=== PATIENT | female | born 1995 | race Caucasian/White ===

== ENCOUNTER 2016-04-25 22:21 | Emergency (ER) | payer OTHER ==
[~2016-04-25] VITALS: Ht 160 cm; Wt 104.3 kg
[2016-04-25] MEDS ORDERED: DILTIAZEM 25 MG/5 ML INJ (CARDIZEM) VIAL ONE (22:24)
--- OUTSIDE RECORDS SUMMARY | 2016-04-25 22:27 | XMS REPORT | Continuity of Care Document ---
Author Author Interface Organization Interface Address Unknown Phone Unavailable Problems Problem Status Onset Date Classification Date Reported Comments Source Other psychoactive substance abuse, uncomplicated Active [facility] Disappearance and of family member Active To[facility]ito Pineda Unspecified mood [affective] disorder Active Toñito Pineda Medications Medication Details Route Status Patient Instructions Ordering Provider Order Date Source Allergies, Adverse Reactions, Alerts Substance Category Reaction Severity Reaction type Status Date Reported Comments Source Immunizations Immunization Date Given Site Status Last Updated Comments Source Results Order Name Results Value Reference Range Date Interpretation Comments Source Vital Signs Vital Sign Value Date Comments Source Encounters Location Location Details Encounter Type Encounter Number Reason For Visit Attending Provider ADM Date DC Date Status Source Procedures Procedure Code Date Perfomer Comments Source Psychotherapy 45 Min [id number] Toñito Pineda
[2016-04-25 22:41] LABS: BASOPHILS % (AUTO) 0 % (0-10); EOSINOPHILS % (AUTO) 0 % (0-10); LYMPHOCYTES # (AUTO) 3.2 X 10^3 (1.0-4.0); LYMPHOCYTES % (AUTO) 30 % (12-44); MEAN CORPUSCULAR HEMOGLOBIN 30 PG (25-34); MEAN CORPUSCULAR HGB CONC 35 G/DL (32-36); MEAN CORPUSCULAR VOLUME 85 FL (80-99); MONOCYTES # (AUTO) 0.7 X 10^3 (0.0-1.0); MONOCYTES % (AUTO) 7 % (0-12); NEUTROPHILS # (AUTO) 6.7 X 10^3 (1.8-7.8); NEUTROPHILS % (AUTO) 63 % (42-75); PLATELET COUNT 300 10^3/uL (130-400); RED BLOOD COUNT 4.93 10^6/uL (4.35-5.85); RED CELL DISTRIBUTION WIDTH 12.8 % (10.0-14.5); WHITE BLOOD COUNT 10.7 10^3/uL (4.3-11.0)
[2016-04-25 22:50] LABS: INR 0.9 (0.8-1.4); PROTHROMBIN TIME PATIENT 11.9 SEC (12.2-14.7)
[2016-04-25] MEDS ORDERED: PROP10TA8 PO (22:53)
--- NOTE | 2016-04-25 22:57 | ED Cardiac General ---
History of Present Illness General Chief Complaint: Chest Pain Stated Complaint: CHEST PAIN Source: patient History of Present Illness Time seen by provider: 22:22 Initial Comments PT ARRIVES VIA POV FROM HOME-[facility] SELF HERE PT STATES SHE HAS HAD PROBLEMS WITH SVT FOR 5 YEARS, BUT HAS BEEN WORSE THE LAST 5 DAYS, AND ALMOST CONSTANT FOR THE LAST DAY HAS HAD CHEST PAIN SINCE YESTERDAY C/O SHORTNESS OF BREATH NO SWELLING IN LEGS / FEET OR PAIN IN CALVES HAS PROPRANOLOL THAT SHE TAKES PRN, AND TOOK ONE YESTERDAY AND DIDN'T THINK IT HELPED MUCH. HAS NOT TAKEN IT TODAY OR AT ANY OTHER TIME OVER THE LAST 5 DAYS PT DENIES BEING UNDER STRESS OR FEELING ANXIOUS, YET PT IS EXTREMELY ANXIOUS, CRYING AND HYPERVENTILATING ON ARRIVAL. LMP--1 WEEK AGO, ENDED ON Friday04/19/16. ON OCP'S PCP: DR. GARCIA IN [facility] [employer] [facility] AT [facility] ONE TIME, SEVERAL YEARS AGO. 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 THEN Allergies and Home Medications Allergies Coded Allergies: ibuprofen (Verified Allergy, Unknown, GI IRRITATION, 04/25/16) Home Medications Propranolol HCl 10 Mg Tablet 10 MG PO PRN PRN PRN SUPRAVENTRICULAR TACHYCARDIA ( Reported) Review of Systems Constitutional: dizziness EENTM: No Symptoms Reported Respiratory: See HPI Shortness of Air Cardiovascular: See HPI Chest Pain Irregular Heart Rate Lightheadedness Palpitations Gastrointestinal: No Symptoms Reported Genitourinary: No Symptoms Reported Musculoskeletal: no symptoms reported Skin: no symptoms reported Psychiatric/Neurological: See HPI Endocrine: No Symptoms Reported Hematologic/Lymphatic: No Symptoms Reported Past Lixdzje-Hqiade-Blhnhv Hx Patient Social History Alcohol Use: Occasionally Uses Recreational Drug Use: No Smoking Status: Never a Smoker Recent Foreign Travel: No Contact w/Someone Who Travel: No Recent Hopitalizations: No Physical Abuse Screen: No Sexual Abuse: No Seasonal Allergies Seasonal Allergies: No Surgeries HX Surgeries: No Respiratory Hx Respiratory Disorders: No Cardiovascular Hx Cardiac Disorders: Yes (SVT) Cardiac Disorders: Irregular Heartbeat Neurological Hx Neurological Disorders: No Reproductive System : No Hx Reproductive Disorders: No Genitourinary Hx Genitourinary Disorders: No Gastrointestinal Hx Gastrointestinal Disorders: No Musculoskeletal Hx Musculoskeletal Disorders: No Endocrine Hx Endocrine Disorders: Yes (OBESITY) HEENT HX ENT Disorders: No Psychosocial Hx Psychiatric Problems: Yes Behavioral Health Disorders: Anxiety Integumentary HX Skin/Integumentary Disorder: No Blood Transfusions Hx Blood Disorders: No Physical Exam Vital Signs Vital Sign - Last 12Hours 04/25/16 22:42 Temp 96.6 Pulse 158 Resp 26 B/P 168/112 Pulse Ox 99 O2 Delivery Room Air Capillary Refill : General Appearance: Obese Other (EXTREMELY ANXIOUS, CRYING, HYPERVENTILATING, VERY DRAMATIC. DOES NOT MAKE EYE CONTACT) HEENT: PERRL/EOMI Neck: Full Range of Motion Normal Inspection Non Tender SuppleNo Carotid Bruit , No JVD Respiratory: Chest Non Tender Normal Breath Sounds No Accessory Muscle Use No Respiratory Distress Other (HYPERVENTILATING) Cardiovascular: No Edema No JVD No Murmur Normal Peripheral Pulses Tachycardia Gastrointestinal: Normal Bowel Sounds No Organomegaly Non Tender Soft Extremity: Normal Capillary Refill Normal Inspection Normal Range of Motion Non Tender No Calf Tenderness No Pedal Edema Neurologic/Psychiatric: Alert Oriented x3 No Motor/Sensory Deficits trimmer climber II- XII Norm as Tested Skin: Normal Color Warm/Dry Tattoos/Piercings (PIERCINGS) Progress/Results/Core Measures Results/Orders Lab Results Laboratory Tests Test 04/25/16 22:30 04/25/16 23:35 Range/Units Activated Partial Thromboplast Time 25 24-35 SEC Alanine Aminotransferase (ALT/SGPT) 17 0-55 U/L Albumin 4.3 3.2-4.5 G/DL Alkaline Phosphatase 95 40-136 U/L Amylase Level 43 25-125 U/L Anion Gap 13 5-14 MMOL/L Aspartate Amino Transf (AST/SGOT) 14 5-34 U/L B-Type Natriuretic Peptide < 10.0 <100.0 PG/ML BUN/Creatinine Ratio 10 Basophils # (Auto) 0.0 0.0-0.1 10^3/uL Basophils (%) (Auto) 0 0-10 % Blood Urea Nitrogen 9 7-18 MG/DL Calcium Level 9.6 8.5-10.1 MG/DL Carbon Dioxide Level 19 L 21-32 MMOL/L Chloride Level 108 H 98-107 MMOL/L Creatine Kinase MB 1.0 <6.6 NG/ML Creatinine 0.87 0.60-1.30 MG/DL Eosinophils # (Auto) 0.0 0.0-0.3 10^3/uL Eosinophils (%) (Auto) 0 0-10 % Estimat Glomerular Filtration Rate > 60 Glucose Level 101 70-105 MG/DL Hematocrit 42 35-52 % Hemoglobin 14.6 11.5-16.0 G/DL INR Comment 0.9 0.8-1.4 Lipase 34 8-78 U/L Lymphocytes # (Auto) 3.2 1.0-4.0 X 10^3 Lymphocytes (%) (Auto) 30 12-44 % Magnesium Level 2.2 1.8-2.4 MG/DL Mean Corpuscular Hemoglobin 30 25-34 PG Mean Corpuscular Hemoglobin Concent 35 32-36 G/DL Mean Corpuscular Volume 85 80-99 FL Mean Platelet Volume 11.0 H 7.4-10.4 FL Monocytes # (Auto) 0.7 0.0-1.0 X 10^3 Monocytes (%) (Auto) 7 0-12 % Neutrophils # (Auto) 6.7 1.8-7.8 X 10^3 Neutrophils (%) (Auto) 63 42-75 % Platelet Count 300 130-400 10^3/uL Potassium Level 3.7 3.6-5.0 MMOL/L Prothrombin Time 11.9 L 12.2-14.7 SEC Red Blood Count 4.93 4.35-5.85 10^6/uL Red Cell Distribution Width 12.8 10.0-14.5 % Serum Test, Qualitative NEGATIVE NEGATIVE Sodium Level 140 135-145 MMOL/L TSH [facility] 3.46 0.35-4.94 UIU/ML Total Bilirubin 0.3 0.1-1.0 MG/DL Total Creatine Kinase 67 29-168 U/L Total Protein 7.5 6.4-8.2 G/DL Troponin I < 0.30 <0.30 NG/ML White Blood Count 10.7 4.3-11.0 10^3/uL Ur Tricyclic Antidepressants Screen NEGATIVE NEGATIVE Urine Amphetamines Screen NEGATIVE NEGATIVE Urine Barbiturates Screen NEGATIVE NEGATIVE Urine Benzodiazepines Screen NEGATIVE NEGATIVE Urine Cannabinoids Screen NEGATIVE NEGATIVE Urine Cocaine Screen NEGATIVE NEGATIVE Urine Methadone Screen NEGATIVE NEGATIVE Urine Methamphetamines Screen NEGATIVE NEGATIVE Urine Opiates Screen NEGATIVE NEGATIVE Urine Oxycodone Screen NEGATIVE NEGATIVE Urine Phencyclidine Screen NEGATIVE NEGATIVE Urine Propoxyphene Screen NEGATIVE NEGATIVE My Orders Orders-MELIA SZYMANSKI DO Diltiazem Injection (Cardizem Injection) (04/25/16 22:24) Amylase (1/12/17 22:32) Cbc With Automated Diff (04/25/16 22:32) Comprehensive Metabolic Panel (04/25/16 22:32) Creatine Kinase (04/25/16 22:32) Creatine Kinase Mb (04/25/16 22:32) Lipase (04/25/16 22:32) Partial Thromboplastin Time (04/25/16 22:32) Protime With Inr (04/25/16 22:32) Troponin I (04/25/16 22:32) Chest 1 View, Ap/Pa Only (04/25/16 22:32) O2 (04/25/16 22:32) Ekg Tracing (04/25/16 22:32) BNP (04/25/16 22:32) Monitor-Rhythm Ecg Trace Only (04/25/16 22:32) Drug Screen Stat (Urine) (04/25/16 22:32) Hcg,Qualitative Serum (04/25/16 22:32) Magnesium (04/25/16 22:32) Thyroid Analyzer (04/25/16 22:32) Aspirin Chewable Tablet (Baby Aspirin Ch (04/25/16 23:00) Metoprolol Succinate (Xl) Tab (Toprol Xl (04/25/16 23:00) Medications Given in ED Current Medications Medications Dose Ordered Sig/Alicia Route Start Time Stop Time Status Last Admin Dose Admin Aspirin 324 mg ONCE ONCE PO 04/25/16 23:00 04/25/16 23:01 DC 04/25/16 22:59 324 MG Diltiazem HCl 25 mg STK-MED ONCE .ROUTE 04/25/16 22:24 04/25/16 22:31 DC 04/25/16 22:32 25 MG Vital Signs/I&O Vital Sign - Last 12Hours 04/25/16 04/25/16 22:42 22:50 Temp 96.6 Pulse 158 Resp 26 B/P 168/112 Pulse Ox 99 O2 Delivery Room Air Room Air Progress Note : Progress Note RATE SLOWED, BP DOWN AND SYMPTOMS RESOLVED ON OWN WITHOUT TREATMENT--ALL WITH CALMING OF PT, A FEW MINUTES AFTER ARRIVAL. CARDIZEM GIVEN WELL. ECG Initial ECG Impression Time: 22:30 Initial ECG Rate: 145 Initial ECG Rhythm: S.Tach Initial ECG Comparisson: No Previous ECG Available EKG : EKG Time: 22:38 Rate: 66 Rhythm: Normal Sinus Comment EKG #3 AT 2242, RATE 84, NSR Diagnostic Imaging Comments CXR--NO ACUTE PROCESS, PENDING RADIOLOGIST REVIEW Reviewed: Reviewed by Me Departure Impression Impression: Primary Impression: INTERMITTENT SINUS TACHYCARDIA Additional Impression: ANXIETY WITH HYPERVENTILATION Disposition: 01 HOME, SELF-CARE Condition: Improved Departure-Patient Inst. Referrals: THONY GARCIA MD Patient Instructions: Anxiety, Adult (DC), Heart Healthy Diet, Hyperventilation , Sinus Tachycardia (DC) Add. Discharge Instructions: HOME, REST TAKE PROPRANOLOL DAILY AVOID CAFFEINE, DECONGESTANTS, AND ANY OTHER STIMULANTS FOLLOW UP WITH DR. GARCIA THIS WEEK FOR FURTHER CARE All discharge instructions reviewed with patient and/or family. Voiced understanding. MELIA SZYMANSKI DO Apr 25, 2016 22:57
[2016-04-25] MEDS ORDERED: ASPIRIN 81 MG CHEW (CHILDREN'S ASA) PO ONE (23:00)
[2016-04-25] MEDS ORDERED: meTOproloL SUCCINATE 50 MG (TOPROL XL) TAB PO SCH (23:00)
[2016-04-25 23:01] LABS: ALANINE AMINOTRANSFERASE 17 U/L (0-55); ALBUMIN 4.3 G/DL (3.2-4.5); AMYLASE 43 U/L (25-125); ANION GAP 13 MMOL/L (5-14); ASPARTATE AMINO TRANSFERASE 14 U/L (5-34); BILIRUBIN,TOTAL 0.3 MG/DL (0.1-1.0); BLOOD UREA NITROGEN 9 MG/DL (7-18); BUN/CREATININE RATIO 10; CALCIUM 9.6 MG/DL (8.5-10.1); CARBON DIOXIDE 19 MMOL/L (21-32); CHLORIDE 108 MMOL/L (98-107); CREATINE KINASE 67 U/L (29-168); CREATININE SERUM 0.87 MG/DL (0.60-1.30); GFR ESTIMATED > 60; GLUCOSE 101 MG/DL (70-105); LIPASE 34 U/L (8-78); MAGNESIUM 2.2 MG/DL (1.8-2.4); POTASSIUM 3.7 MMOL/L (3.6-5.0); SODIUM 140 MMOL/L (135-145); TOTAL PROTEIN 7.5 G/DL (6.4-8.2)
[2016-04-25 23:20] LABS: TROPONIN I < 0.30 NG/ML (<0.30)
[2016-04-26 00:36] VITALS: BP 128/77
--- NOTE | 2016-04-26 07:40 | Diagnostic Imaging Report ---
Portable upright radiograph of the chest. INDICATION: Chest pain. FINDINGS: The lungs are clear. The heart size is normal. No effusion or pneumothorax. The mediastinum and dillan appear unremarkable. IMPRESSION: Unremarkable exam. Dictated by: Dictated on workstation # [id number]
== END 2016-04-26 00:35 | disposition home or self-care (01) ==
LOC: ER 22:24
DX: R00.0 Tachycardia, unspecified (principal); F41.9 Anxiety disorder, unspecified; R06.4 Hyperventilation
CPT/HCPCS: 36415; 71010; 80053; 80306; 82150; 82550; 82553; 83690; 83735; 83880; 84443; 84484; 84703; 85025; 85610; 85730; 93005; 93041; 96374

== ENCOUNTER 2018-02-25 09:34 | Emergency (ER) | payer OTHER ==
[~2018-02-25] VITALS: Ht 162.6 cm; Wt 81.6 kg
[~2018-02-25 09:34] MED LIST: PROP10TA8 PO
--- NOTE | 2018-02-25 11:11 | ED Abdominal Pain ---
General Chief Complaint: Abdominal/GI Problems Stated Complaint: ABD PAIN Nursing Triage Note: pt ambulates to room 9 without difficulty. pt reports r upper abdominal pain x 11 days after eating suspected bad food at a restaurant. reports one episode of n/v following that evening. pt reports has had addominal pain and constipation since. pt reports no bm x 7 days. pt states she was seen at urgent care on friday and prescribed antibiotics for a UTI. Sepsis Screen: No Definite Risk Source of Information: Patient Exam Limitations: No Limitations History of Present Illness Date Seen by Provider: Feb 25, 2018 Time Seen by Provider: 11:00 Initial Comments Patient is a 23-year-old female who presents to the emergency room by private vehicle with complaints of constipation with no bowel movement for 7 days and right upper quadrant abdominal pain. She reports that this started 11 days ago when she was eating at a Turkish restaurant when she was served raw meat, the night of eating a raw meat she had nausea, vomiting, diarrhea for approximately 12 hours and took Imodium for the diarrhea and has had abdominal pain ever since. She was seen at urgent care 3 days ago and had x-rays and was given a laxative and antibiotics for urinary tract infection but has continued to have a bowel movement with the laxatives. Denies using any enemas for constipation relief. Timing/Duration: Other (11 days) Severity/Quality: Aching, Dull Location: RUQ Radiation: No Radiation Associated Symptoms: Nausea/Vomiting, Other (constipation) Allergies and Home Medications Allergies Coded Allergies: ibuprofen (Verified Allergy, Unknown, GI IRRITATION, 04/25/16) Home Medications Propranolol HCl 10 Mg Tablet, 10 MG PO PRN PRN for SUPRAVENTRICULAR TACHYCARDIA, (Reported) Patient Home Medication List Home Medication List Reviewed: Yes Review of Systems Review of Systems Constitutional: no symptoms reported, see HPI Gastrointestinal: Abdominal Pain, Constipated, Nausea All Other Systems Reviewed Negative Unless Noted: Yes Past Lxpraxm-Aoxtek-Hfbrbi Hx Past Med/Social Hx: Reviewed Nursing Past Med/Soc Hx Patient Social History Alcohol Use: Denies Use Recreational Drug Use: No Smoking Status: Never a Smoker Recent Foreign Travel: No Contact w/Someone Who Travel: No Recent Infectious Disease Expo: No Recent Hopitalizations: No Physical Abuse: No Sexual Abuse: No Mistreated: No Fear: No Seasonal Allergies Seasonal Allergies: No Past Medical History Surgeries: No Respiratory: No Cardiac: Yes (SVT) Hypertension, Irregular Heartbeat Neurological: No Reproductive Disorders: No Genitourinary: No Gastrointestinal: No Musculoskeletal: No Endocrine: Yes (OBESITY) HEENT: No Cancer: No Psychosocial: Yes Anxiety Integumentary: No Blood Disorders: No Family Medical History Reviewed Nursing Family Hx Physical Exam Vital Signs Vital Signs - First Documented 02/25/18 10:34 Temp 98.0 Pulse 104 Resp 20 B/P (MAP) 144/85 (104) Pulse Ox 98 O2 Delivery Room Air Capillary Refill : Less Than 3 Seconds Height/Weight/BMI Height: 5'4.00" Weight: 180lbs. oz. 81.962995kz; BMI Method:Stated General Appearance: WD/WN, no apparent distress Respiratory: chest non-tender, lungs clear, normal breath sounds, no respiratory distress, no accessory muscle use Cardiovascular: normal peripheral pulses, regular rate, rhythm, no edema, no gallop, no JVD, no murmur Gastrointestinal: normal bowel sounds, soft, no organomegaly, no pulsatile mass ; No distended, No guarding, No rebound; tenderness (marked tenderness to the left upper and right upper quadrant.) Neurologic/Psychiatric: alert, normal mood/affect, oriented x 3 Skin: normal color, warm/dry Progress/Results/Core Measures Results/Orders Lab Results Laboratory Tests Test 02/25/18 10:57 02/25/18 11:40 Range/Units Urine Color BETTIE H Urine Clarity CLEAR Urine pH 5 5-9 Urine Specific [place] 1.020 1.016-1.022 Urine Protein 1+ H NEGATIVE Urine Glucose (UA) NEGATIVE NEGATIVE Urine Ketones 3+ H NEGATIVE Urine Nitrite NEGATIVE NEGATIVE Urine Bilirubin NEGATIVE NEGATIVE Urine Urobilinogen NORMAL NORMAL MG/DL Urine Leukocyte Esterase 1+ H NEGATIVE Urine RBC (Auto) NEGATIVE NEGATIVE Urine RBC RARE /HPF Urine WBC 2-5 /HPF Urine Squamous Epithelial Cells 2-5 /HPF Urine Renal Epithelial Cells NONE /HPF Urine Crystals NONE /LPF Urine Bacteria FEW H /HPF Urine Casts NONE /LPF Urine Mucus MODERATE H /LPF Urine Culture Indicated NO White Blood Count 8.5 4.3-11.0 10^3/uL Red Blood Count 4.87 4.35-5.85 10^6/uL Hemoglobin 14.5 11.5-16.0 G/DL Hematocrit 43 35-52 % Mean Corpuscular Volume 88 80-99 FL Mean Corpuscular Hemoglobin 30 25-34 PG Mean Corpuscular Hemoglobin Concent 34 32-36 G/DL Red Cell Distribution Width 12.7 10.0-14.5 % Platelet Count 283 130-400 10^3/uL Mean Platelet Volume 11.4 H 7.4-10.4 FL Neutrophils (%) (Auto) 72 42-75 % Lymphocytes (%) (Auto) 22 12-44 % Monocytes (%) (Auto) 6 0-12 % Eosinophils (%) (Auto) 0 0-10 % Basophils (%) (Auto) 0 0-10 % Neutrophils # (Auto) 6.1 1.8-7.8 X 10^3 Lymphocytes # (Auto) 1.8 1.0-4.0 X 10^3 Monocytes # (Auto) 0.5 0.0-1.0 X 10^3 Eosinophils # (Auto) 0.0 0.0-0.3 10^3/uL Basophils # (Auto) 0.0 0.0-0.1 10^3/uL Sodium Level 138 135-145 MMOL/L Potassium Level 4.2 3.6-5.0 MMOL/L Chloride Level 106 98-107 MMOL/L Carbon Dioxide Level 24 21-32 MMOL/L Anion Gap 8 5-14 MMOL/L Blood Urea Nitrogen 10 7-18 MG/DL Creatinine 0.82 0.60-1.30 MG/DL Estimat Glomerular Filtration Rate > 60 BUN/Creatinine Ratio 12 Glucose Level 84 70-105 MG/DL Calcium Level 10.0 8.5-10.1 MG/DL Corrected Calcium 9.8 8.5-10.1 MG/DL Total Bilirubin 0.7 0.1-1.0 MG/DL Aspartate Amino Transf (AST/SGOT) 16 5-34 U/L Alanine Aminotransferase (ALT/SGPT) 16 0-55 U/L Alkaline Phosphatase 68 40-136 U/L Total Protein 7.6 6.4-8.2 GM/DL Albumin 4.2 3.2-4.5 GM/DL Amylase Level 36 25-125 U/L Lipase 16 8-78 U/L Serum Test, Qualitative NEGATIVE NEGATIVE My Orders Orders - LISET LOO Comprehensive Metabolic Panel (02/25/18 11:09) Lipase (02/25/18 11:09) Amylase (02/25/18 11:09) Ua Culture If Indicated (02/25/18 11:09) Hcg,Qualitative Serum (02/25/18 11:09) Saline Lock/Iv-Start (02/25/18 11:09) Cbc With Automated Diff (02/25/18 11:09) Ct Abdomen/Pelvis W (02/25/18 11:09) Ns Iv 1000 Ml (Sodium Chloride 0.9%) (02/25/18 11:15) Iohexol Injection (Omnipaque 350 Mg/Ml 1 (02/25/18 11:30) Contrast Received (Contrast Received) (02/25/18 11:30) Ns (Ivpb) (Sodium Chloride 0.9%) (02/25/18 11:30) Medications Given in ED Vital Signs/I&O 02/25/18 02/25/18 10:34 12:53 Temp 98.0 Pulse 104 83 Resp 20 18 B/P (MAP) 144/85 (104) 118/62 (80) Pulse Ox 98 100 O2 Delivery Room Air Blood Pressure Mean: 104 Diagnostic Imaging Diagonstic Imaging: CT Plain Films/CT/US/NM/MRI: abdomen, pelvis Comments NAME: JANET CHAKRABORTY [facility] REC#: [id number] PT STATUS: DEP ER : 1995 PHYSICIAN: LISET LOO ADMIT DATE: 02/25/18/ER Signed Date of Exam: 02/25/18 CT ABDOMEN/PELVIS W PROCEDURE: CT abdomen and pelvis with contrast. TECHNIQUE: Multiple contiguous axial images were obtained through the abdomen and pelvis after administration of intravenous contrast. INDICATION: Right upper quadrant pain as well as nausea and constipation. COMPARISON: No prior studies are available for comparison. FINDINGS: The lung bases are clear. No discrete liver mass is seen. The gallbladder is unremarkable. No biliary ductal dilatation is identified. The pancreas and spleen are unremarkable. No adrenal mass is identified. Kidneys are unremarkable. Aorta is non-aneurysmal. Small lymph nodes in the central retroperitoneum are noted. Small lymph nodes in the mesentery are also seen. The bladder and uterus are unremarkable. There is no ascites. Bowel loops are normal in caliber. The uterus and bladder are unremarkable. No inflammatory changes are seen. Bony structures do show innumerable sclerotic foci throughout the lumbar spine, pelvis, and proximal femora suggestive of osteopoikilosis. IMPRESSION: 1. No acute feature in the abdomen or pelvis is identified. There are several small lymph nodes in the mesentery which could indicate mesenteric adenitis. No other significant abnormality is seen. 2. 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 Dictated by: Dictated on workstation # [id number] Dict: 02/25/18 1208 Trans: 02/25/18 1600 Interpreted by: ISSA ROBERTSON MD Electronically signed by: ISSA ROBERTSON MD 02/25/18 1600 Reviewed: Reviewed by Me Departure Impression Primary Impression: Mesenteric adenitis Disposition: HOME, SELF-CARE Condition: Stable/Unchanged Departure-Patient Inst. Decision time for Depature: 12:47 Referrals: NO,LOCAL PHYSICIAN (PCP) Primary Care Physician ERIC JUAREZ MD Patient Instructions: Acute Abdomen (Belly Pain), Adult (DC), Mesenteric Lymphadenitis (DC) Add. Discharge Instructions: You may use Tylenol as directed by the bottle for pain relief. Follow-up with a physician within 1 week for recheck. Call today for an appointment time. Continue the antibiotics and laxatives as prescribed by a [facility] urgent care. If you still unable to have a bowel movement you may obtain a Fleet enema as directed or relief. Return back to the emergency room for any worsening symptoms or concerns as needed. All discharge instructions reviewed with patient and/or family. Voiced understanding. LISET LOO Feb 25, 2018 11:11
[2018-02-25] MEDS ORDERED: NS IV 1000 ML 1,000 ML IV SCH (11:15)
[2018-02-25 11:24] LABS: BILIRUBIN,URINE NEGATIVE (NEGATIVE); CLARITY,URINE CLEAR; COLOR,URINE AMBER; GLUCOSE, URINE (UA) NEGATIVE (NEGATIVE); KETONES,URINE 3+ (NEGATIVE); LEUKOCYTE ESTERASE ,URINE 1+ (NEGATIVE); NITRITE,URINE NEGATIVE (NEGATIVE); PH,URINE 5 (5-9); PROTEIN,URINE 1+ (NEGATIVE); UROBILINOGEN,URINE NORMAL (NORMAL)
[2018-02-25] MEDS ORDERED: RECEIVED CONTRAST (Hold Metformin) IV SCH (11:30)
[2018-02-25] MEDS ORDERED: NS 250 ML (IVPB) BAG IV ONE (11:30)
[2018-02-25] MEDS ORDERED: IOHEXOL 350 MG/ML 100 ML (OMNIPAQUE 350) VIAL IV ONE (11:30)
[2018-02-25 11:45] LABS: BASOPHILS % (AUTO) 0 % (0-10); EOSINOPHILS % (AUTO) 0 % (0-10); HEMATOCRIT 43 % (35-52); HEMOGLOBIN 14.5 G/DL (11.5-16.0); LYMPHOCYTES # (AUTO) 1.8 X 10^3 (1.0-4.0); LYMPHOCYTES % (AUTO) 22 % (12-44); MEAN CORPUSCULAR HEMOGLOBIN 30 PG (25-34); MEAN CORPUSCULAR HGB CONC 34 G/DL (32-36); MEAN CORPUSCULAR VOLUME 88 FL (80-99); MEAN PLATELET VOLUME 11.4 FL (7.4-10.4); MONOCYTES # (AUTO) 0.5 X 10^3 (0.0-1.0); MONOCYTES % (AUTO) 6 % (0-12); NEUTROPHILS # (AUTO) 6.1 X 10^3 (1.8-7.8); NEUTROPHILS % (AUTO) 72 % (42-75); PLATELET COUNT 283 10^3/uL (130-400); RED BLOOD COUNT 4.87 10^6/uL (4.35-5.85); RED CELL DISTRIBUTION WIDTH 12.7 % (10.0-14.5); WHITE BLOOD COUNT 8.5 10^3/uL (4.3-11.0)
[2018-02-25 11:53] LABS: BACTERIA,URINE FEW /HPF; RBC,URINE RARE /HPF
[2018-02-25 12:14] LABS: ALANINE AMINOTRANSFERASE 16 U/L (0-55); ALBUMIN 4.2 GM/DL (3.2-4.5); ALKALINE PHOSPHATASE 68 U/L (40-136); AMYLASE 36 U/L (25-125); BILIRUBIN,TOTAL 0.7 MG/DL (0.1-1.0); BUN/CREATININE RATIO 12; CARBON DIOXIDE 24 MMOL/L (21-32); CHLORIDE 106 MMOL/L (98-107); CREATININE SERUM 0.82 MG/DL (0.60-1.30); GFR ESTIMATED > 60; GLUCOSE 84 MG/DL (70-105); LIPASE 16 U/L (8-78); POTASSIUM 4.2 MMOL/L (3.6-5.0); SODIUM 138 MMOL/L (135-145); TOTAL PROTEIN 7.6 GM/DL (6.4-8.2)
--- NOTE | 2018-02-25 12:41 | Diagnostic Imaging Report ---
PROCEDURE: CT abdomen and pelvis with contrast. TECHNIQUE: Multiple contiguous axial images were obtained through the abdomen and pelvis after administration of intravenous contrast. INDICATION: Right upper quadrant pain as well as nausea and constipation. COMPARISON: No prior studies are available for comparison. FINDINGS: The lung bases are clear. No discrete liver mass is seen. The gallbladder is unremarkable. No biliary ductal dilatation is identified. The pancreas and spleen are unremarkable. No adrenal mass is identified. Kidneys are unremarkable. Aorta is non-aneurysmal. Small lymph nodes in the central retroperitoneum are noted. Small lymph nodes in the mesentery are also seen. The bladder and uterus are unremarkable. There is no ascites. Bowel loops are normal in caliber. The uterus and bladder are unremarkable. No inflammatory changes are seen. Bony structures do show innumerable sclerotic foci throughout the lumbar spine, pelvis, and proximal femora suggestive of osteopoikilosis. IMPRESSION: 1. No acute feature in the abdomen or pelvis is identified. There are several small lymph nodes in the mesentery which could indicate mesenteric adenitis. No other significant abnormality is seen. 2. 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 Dictated by: Dictated on workstation # [id number]
[2018-02-25 12:53] VITALS: BP 118/62
== END 2018-02-25 12:53 | disposition home or self-care (01) ==
LOC: EDUNIT# 09:34 → ER 09:34
DX: I88.0 Nonspecific mesenteric lymphadenitis (principal); I10 Essential (primary) hypertension; E66.9 Obesity, unspecified; F41.9 Anxiety disorder, unspecified; Z88.6 Allergy status to analgesic agent; Z68.30 Body mass index [BMI] 30.0-30.9, adult
CPT/HCPCS: 36415; 74177; 80053; 81000; 82150; 83690; 84703; 85025

== ENCOUNTER 2018-02-27 20:25 | Emergency (ER) | payer OTHER ==
[~2018-02-27] VITALS: Ht 162.6 cm; Wt 81.6 kg
--- NOTE | 2018-02-27 21:21 | ED Lower Extremity ---
General Stated Complaint: ARMS AND LEGS TINGLING/PINS AND NEEDLES SENSATION Source: patient Exam Limitations: no limitations History of Present Illness Date Seen by Provider: Feb 27, 2018 Time Seen by Provider: 21:19 Initial Comments To ER with reports of tingling, pins and needles sensation in her legs. This starts in the mid calves and extends distally. This began 2-3 days ago. About 1- 2 weeks ago she was seen by us here in the emergency room for tingling in arms and legs. No other symptoms. No fevers or chills. Onset: other (2-3 days ago) Severity: moderate Pain/Injury Location: bilateral leg, bilateral foot Allergies and Home Medications Allergies Coded Allergies: ibuprofen (Verified Allergy, Unknown, GI IRRITATION, 04/25/16) Home Medications Propranolol HCl 10 Mg Tablet, 10 MG PO PRN PRN for SUPRAVENTRICULAR TACHYCARDIA, (Reported) Patient Home Medication List Home Medication List Reviewed: Yes Review of Systems Constitutional: see HPI EENTM: see HPI Respiratory: no symptoms reported Cardiovascular: no symptoms reported Genitourinary: no symptoms reported Musculoskeletal: no symptoms reported Skin: no symptoms reported Psychiatric/Neurological: No Symptoms Reported Past Zbsbjmk-Rtweph-Fwelce Hx Patient Social History Recent Foreign Travel: No Contact w/Someone Who Travel: No Recent Hopitalizations: No Seasonal Allergies Seasonal Allergies: No Past Medical History Surgeries: No Respiratory: No Cardiac: Yes (SVT) Hypertension, Irregular Heartbeat Neurological: No Reproductive Disorders: No Genitourinary: No Gastrointestinal: No Musculoskeletal: No Endocrine: Yes (OBESITY) HEENT: No Cancer: No Psychosocial: Yes Anxiety Integumentary: No Blood Disorders: No Physical Exam Vital Signs Vital Signs - First Documented 02/27/18 21:10 Temp 97.7 Pulse 88 Resp 19 B/P (MAP) 135/94 (108) O2 Delivery Room Air Capillary Refill : Height, Weight, BMI Height: 5'4.00" Weight: 180lbs. oz. 81.972471en; BMI Method:Stated General Appearance: WD/WN, no apparent distress HEENT: PERRL/EOMI, normal ENT inspection Neck: non-tender, full range of motion Respiratory: no respiratory distress, no accessory muscle use Gastrointestinal: normal bowel sounds, non tender Hips: bilateral hip non-tender, bilateral hip normal inspection, bilateral hip normal range of motion Legs: bilateral leg non-tender, bilateral leg normal inspection, bilateral leg normal range of motion Knees: bilateral knee non-tender, bilateral knee normal inspection, bilateral knee normal range of motion Ankles: bilateral ankle non-tender, bilateral ankle normal inspection, bilateral ankle normal range of motion Feet: bilateral foot non-tender, bilateral foot normal inspection, bilateral foot normal range of motion Neurologic/Psychiatric: alert, normal mood/affect, oriented x 3 Skin: normal color, warm/dry dorsalis pedis pulses +2 Progress/Results/Core Measures Results/Orders Lab Results Laboratory Tests Test 02/27/18 21:40 Range/Units White Blood Count 7.2 4.3-11.0 10^3/uL Red Blood Count 4.83 4.35-5.85 10^6/uL Hemoglobin 14.5 11.5-16.0 G/DL Hematocrit 43 35-52 % Mean Corpuscular Volume 89 80-99 FL Mean Corpuscular Hemoglobin 30 25-34 PG Mean Corpuscular Hemoglobin Concent 34 32-36 G/DL Red Cell Distribution Width 12.7 10.0-14.5 % Platelet Count 280 130-400 10^3/uL Mean Platelet Volume 11.8 H 7.4-10.4 FL Neutrophils (%) (Auto) 52 42-75 % Lymphocytes (%) (Auto) 37 12-44 % Monocytes (%) (Auto) 11 0-12 % Eosinophils (%) (Auto) 0 0-10 % Basophils (%) (Auto) 1 0-10 % Neutrophils # (Auto) 3.7 1.8-7.8 X 10^3 Lymphocytes # (Auto) 2.6 1.0-4.0 X 10^3 Monocytes # (Auto) 0.8 0.0-1.0 X 10^3 Eosinophils # (Auto) 0.0 0.0-0.3 10^3/uL Basophils # (Auto) 0.0 0.0-0.1 10^3/uL Sodium Level 141 135-145 MMOL/L Potassium Level 4.0 3.6-5.0 MMOL/L Chloride Level 110 H 98-107 MMOL/L Carbon Dioxide Level 20 L 21-32 MMOL/L Anion Gap 11 5-14 MMOL/L Blood Urea Nitrogen 7 7-18 MG/DL Creatinine 0.80 0.60-1.30 MG/DL Estimat Glomerular Filtration Rate > 60 BUN/Creatinine Ratio 9 Glucose Level 81 70-105 MG/DL Calcium Level 9.4 8.5-10.1 MG/DL Corrected Calcium 9.3 8.5-10.1 MG/DL Total Bilirubin 0.4 0.1-1.0 MG/DL Aspartate Amino Transf (AST/SGOT) 13 5-34 U/L Alanine Aminotransferase (ALT/SGPT) 15 0-55 U/L Alkaline Phosphatase 67 40-136 U/L Total Protein 7.3 6.4-8.2 GM/DL Albumin 4.1 3.2-4.5 GM/DL My Orders Orders - SHIELA ROSALES [employer] Cbc With Automated Diff (02/27/18 21:14) Vitamin B 12 (02/27/18 21:14) Folic Acid (02/27/18 21:14) Comprehensive Metabolic Panel (02/27/18 21:14) Vital Signs/I&O 02/27/18 21:10 Temp 97.7 Pulse 88 Resp 19 B/P (MAP) 135/94 (108) O2 Delivery Room Air Departure Communication (Admissions) Patient states that she has had this tingling in the same location previously when she was diagnosed with hypertension. Symptoms were present for about one month and she was started on blood pressure medication. After the blood pressure went down the tingling went away. This tingling she's had for 2-3 days is in the same distribution. The distribution of tingling/paresthesias has not been asymptomatic in nature, it began in the calves and feet bilaterally and the location has not spread more proximally or to any other location over the past 3 days. She did have a recent illness. She states that about 12-13 days ago she had an episode of nausea vomiting and diarrhea that persisted for about 12 hours after eating some meat in her food at a restaurant that she found to be undercooked and raw. Guillian Benton Syndrom would be considered in the differential given the paresthesias in the feet and recent illness with gastrointestinal symptoms as Campylobacter jejuni has been associated with development of Lauar Tellez. However her report that she has had this exact same pain many months ago when she was diagnosed with hypertension that went away with blood pressure management and that her paresthesias and tingling are in the exact same location tonight as they were at the very onset 2-3 days ago and have not spreading more proximally is reassuring and I do not suspect Laura Tellez. Patellar reflex is 2+. She does not have a primary care provider. She would like to see Dr. Jaime or Dr. Silva. She would like me to fax her records to Dr. Jaime. Impression Primary Impression: Paresthesia of both lower extremities Disposition: HOME, SELF-CARE Condition: Stable Departure-Patient Inst. Decision time for Depature: 22:45 Referrals: NO,LOCAL PHYSICIAN (PCP/Family) Primary Care Physician Patient Instructions: Paresthesias (DC) Add. Discharge Instructions: 1. Return to the emergency room over the weekend for any tingling that spreads up your legs or other concerns. Follow-up with a primary care provider of your choosing. Call Friday to make an appointment to be seen. I have faxed a report to Dr. Jaime but you may see whoever you would like. Copy Copies To 1: MAYDA JAIME MD, PETER J APRN Feb 27, 2018 21:21
[2018-02-27 21:46] LABS: BASOPHILS % (AUTO) 1 % (0-10); EOSINOPHILS % (AUTO) 0 % (0-10); HEMATOCRIT 43 % (35-52); HEMOGLOBIN 14.5 G/DL (11.5-16.0); LYMPHOCYTES # (AUTO) 2.6 X 10^3 (1.0-4.0); LYMPHOCYTES % (AUTO) 37 % (12-44); MEAN CORPUSCULAR HEMOGLOBIN 30 PG (25-34); MEAN CORPUSCULAR HGB CONC 34 G/DL (32-36); MEAN CORPUSCULAR VOLUME 89 FL (80-99); MEAN PLATELET VOLUME 11.8 FL (7.4-10.4); MONOCYTES # (AUTO) 0.8 X 10^3 (0.0-1.0); MONOCYTES % (AUTO) 11 % (0-12); NEUTROPHILS # (AUTO) 3.7 X 10^3 (1.8-7.8); NEUTROPHILS % (AUTO) 52 % (42-75); PLATELET COUNT 280 10^3/uL (130-400); RED BLOOD COUNT 4.83 10^6/uL (4.35-5.85); RED CELL DISTRIBUTION WIDTH 12.7 % (10.0-14.5); WHITE BLOOD COUNT 7.2 10^3/uL (4.3-11.0)
[2018-02-27 22:05] LABS: ALANINE AMINOTRANSFERASE 15 U/L (0-55); ALBUMIN 4.1 GM/DL (3.2-4.5); ALKALINE PHOSPHATASE 67 U/L (40-136); BILIRUBIN,TOTAL 0.4 MG/DL (0.1-1.0); BUN/CREATININE RATIO 9; CALCIUM 9.4 MG/DL (8.5-10.1); CARBON DIOXIDE 20 MMOL/L (21-32); CHLORIDE 110 MMOL/L (98-107); GFR ESTIMATED > 60; GLUCOSE 81 MG/DL (70-105); SODIUM 141 MMOL/L (135-145); TOTAL PROTEIN 7.3 GM/DL (6.4-8.2)
[2018-02-27 22:53] VITALS: BP 135/94
== END 2018-02-27 22:54 | disposition home or self-care (01) ==
LOC: EDUNIT# 20:25 → ER 20:25
DX: R20.2 Paresthesia of skin (principal); I10 Essential (primary) hypertension; E66.9 Obesity, unspecified; F41.9 Anxiety disorder, unspecified; Z88.6 Allergy status to analgesic agent; Z68.30 Body mass index [BMI] 30.0-30.9, adult
CPT/HCPCS: 36415; 80053; 82607; 82746; 85025; 99281

== ENCOUNTER → 2018-03-20 | Outpatient (CLI) | payer OTHER ==
[~2018-03-20] MED LIST changes: +CATHETER FLUSH 10 ML SYR IV PRN; +IOHEXOL 350 MG/ML 100 ML (OMNIPAQUE 350) VIAL IV ONE; +NS 250 ML (IVPB) BAG IV ONE; +RECEIVED CONTRAST (Hold Metformin) IV SCH
[2018-03-20 11:36] LABS: HEMOGLOBIN 13.6 G/DL (11.5-16.0); MEAN PLATELET VOLUME 11.2 FL (7.4-10.4); RED BLOOD COUNT 4.61 10^6/uL (4.35-5.85); RED CELL DISTRIBUTION WIDTH 12.2 % (10.0-14.5); WHITE BLOOD COUNT 6.1 10^3/uL (4.3-11.0)
--- NOTE | 2018-03-20 13:15 | Diagnostic Imaging Report ---
PROCEDURE: CT abdomen and pelvis with contrast, rule out appendicitis. TECHNIQUE: Multiple contiguous axial images were obtained through the abdomen and pelvis after the administration of intravenous contrast. INDICATION: Increasing right lower quadrant pain for the last six weeks. COMPARISON: Comparison is made with prior CT from 02/25/2018. FINDINGS: Lung bases are clear. The liver remains unremarkable. No liver mass is detected. The gallbladder is unremarkable. No biliary ductal dilatation is seen. The pancreas and spleen are unremarkable. No adrenal mass is detected. Kidneys are unremarkable. The aorta is non-aneurysmal. The small and large bowel loops remain normal in caliber. There is no obstruction. The appendix is visualized in the right lower quadrant and appears unremarkable. No appendiceal wall thickening or periappendiceal inflammation is identified. Small lymph nodes in the right lower quadrant are similar to prior. There is no ascites. No free air is detected. The uterus and bladder are unremarkable. Imaging of the bony structures again demonstrates numerous small sclerotic foci throughout the axial skeleton including bony pelvis and proximal femora consistent with osteopoikilosis. IMPRESSION: Unremarkable CT of the abdomen and pelvis. Specifically, no CT evidence of acute appendicitis is identified. Overall appearance is stable when compared with examination from 02/25/2018. Dictated by: Dictated on workstation # [id number]
== END ==
LOC: RAD 11:19
PROVIDERS: ATTEND Surgery
DX: R10.31 Right lower quadrant pain (principal)
CPT/HCPCS: 36415; 74177; 84703; 85027

== ENCOUNTER 2018-05-08 13:52 | Emergency (ER) | payer OTHER | END 2018-05-08 15:56 | disposition home or self-care (01) | LOC: ER 13:52 ==

== ENCOUNTER → 2018-05-22 | Outpatient (CLI) | payer OTHER ==
[~2018-05-22] MED LIST changes: -CATHETER FLUSH 10 ML SYR IV PRN; +DICY10CA12 PO; -IOHEXOL 350 MG/ML 100 ML (OMNIPAQUE 350) VIAL IV ONE; +METO-387 PO; -NS 250 ML (IVPB) BAG IV ONE; -RECEIVED CONTRAST (Hold Metformin) IV SCH
== END | disposition home or self-care (01) ==
LOC: PREOP 06:30
PROVIDERS: ATTEND Surgery
DX: Z01.818 Encounter for other preprocedural examination (principal)

== ENCOUNTER 2018-05-25 12:15 | Day surgery (SDC) | payer OTHER ==
[~2018-05-25] VITALS: Ht 162.6 cm; Wt 83.9 kg
[~2018-05-25 12:15] MED LIST changes: -METO-387 PO
[2018-05-25] MEDS ORDERED: LACTATED RINGERS 1,000 ML IV ONE (12:23)
[2018-05-25] MEDS ORDERED: METO-387 PO (12:40)
[2018-05-25 12:42] VITALS: BP 139/85
[2018-05-25] MEDS ORDERED: MIDAZOLAM 2 MG/2 ML (VERSED) VIAL ONE ×3 (12:42→13:23)
[2018-05-25] MEDS ORDERED: PROPOFOL INJECTION 50 ML IV ONE ×2 (12:42→13:53)
[2018-05-25] MEDS ORDERED: LACTATED RINGERS 1,000 ML IV STA (12:46)
[2018-05-25 14:25] VITALS: BP 99/54
--- NOTE | 2018-05-25 14:32 | Progress Note-Pre Operative ---
Pre-Operative Progress Note H&P Reviewed The H&P was reviewed, patient examined and no changes noted. Time Seen by Provider: 13:27 Date H&P Reviewed: May 25, 2018 Time H&P Reviewed: 13:28 Pre-Operative Diagnosis: Change in bowel habits, Constipation ALETHEA URBINA DO May 25, 2018 14:32
--- NOTE | 2018-05-25 14:34 | Progress Note-Post Operative ---
Post-Operative Progess Note Surgeon (s)/Tag Stringer (s) Surgeon ALETHEA URBINA DO Tag Stringer: none Pre-Operative Diagnosis Change in bowel habits, Constipation Post-Operative Diagnosis same Procedure & Operative Findings Date of Procedure 05/25/18 Procedure Performed/Findings colonoscopy Anesthesia Type IV sedation by CAMP PROGRAM DIRECTOR Estimated Blood Loss Estimated blood loss (mL): none Specimens/Packing Specimens Removed none ALETHEA URBINA DO May 25, 2018 14:33
--- NOTE | 2018-05-25 14:35 | Endoscopy Discharge Instruct ---
Endo Procedure/Findings Findings 1.: Normal Discharge Instructions - Activity: You might feel a little sleepy until tomorrow. This is due to the medicine you received to relax you. Until tomorrow, you should: NOT drive a car, operate machinery or power tools. NOT drink any alcoholic beverages. NOT make any important decisions or sign importortant papers. Do not return to work until tomorrow, unless otherwise instructed. Resume previous activities tomorrow. Diet: Start by taking liquids. If you tolerate liquids, advance to solid food. Make an appointment for one week. Notify Physician - If you experience excessive bleeding, unusual abdominal pain, fever, or chest pain, contact your doctor immediately. Follow-Up: - I have received and understand the above instructions and will call my doctor if I have any further questions. Patient Signature Date Nurse Signature Other (Relationship) ALETHEA URBINA DO May 25, 2018 14:35
[2018-05-25 14:50] VITALS: BP 123/77
[2018-05-25 14:53] VITALS: BP 123/77
--- NOTE | 2018-05-26 00:42 | OPERATIVE REPORT ---
DATE OF SERVICE: 05/25/2018 PREOPERATIVE DIAGNOSES: 1. Change in bowel habits. 2. Constipation. POSTOPERATIVE DIAGNOSES: 1. Change in bowel habits. 2. Constipation. PROCEDURE: Colonoscopy. SURGEON: Sukumar Lozano DO MACHINIST HELPER MARINE: None. ANESTHESIA: IV sedation by the VETERINARIAN SMALL ANIMAL. SPECIMENS: None. BLOOD LOSS: None. FLUIDS: Per anesthesia. POSTOPERATIVE CONDITION: Stable. INDICATION FOR PROCEDURE: The patient is a 23-year-old female who has been having some severe constipation with abdominal pain and a change in bowel habits and needed a colonoscopy to work this up. FINDINGS: The patient had relatively normal colon, maybe some very small internal hemorrhoids, but nothing else seen. PROCEDURE NOTE: After informed consent was obtained, the patient was brought to the endoscopy suite, placed in the bed in the left lateral decubitus position. She was administered IV sedation by the VETERINARIAN SMALL ANIMAL who then monitored her vitals the entire time, heart rate, blood pressure and pulse ox and the scope was inserted, pushed all the way about 130 cm, able to get all the way to cecum, took a picture of appendiceal orifice and then into the terminal ileum, took a picture and then slowly withdrew the scope insufflating to look circumferentially at the [place] looking at the cecum up the ascending colon to the hepatic flexure, then down the transverse colon to the splenic flexure and then into the descending colon and finally into the sigmoid and down into the rectum, retroflexed in the rectal vault, saw some very minimal internal hemorrhoids, took a picture of this and then removed the scope. The patient tolerated the procedure and she was recovered in endoscopy suite. Job ID: [id number] DocumentID: [id number] Dictated Date: 05/25/2018 15:17:27 Engine Dynamometer Tester Date: 05/26/2018 00:42:16 Dictated By: SUKUMAR LOZANO DO
== END 2018-05-25 15:00 | disposition home or self-care (01) ==
LOC: ENDO 12:15
PROVIDERS: ATTEND Surgery
DX: K64.8 Other hemorrhoids (principal); K59.00 Constipation, unspecified; I10 Essential (primary) hypertension; I47.1 Supraventricular tachycardia; Z79.899 Other long term (current) drug therapy
CPT/HCPCS: 84703